=== PATIENT | female | born 1985 | race Hispanic/Latino ===

== ENCOUNTER 2017-07-10 15:51 | Outpatient (CLI) | payer OTHER ==
--- NOTE | 2017-07-10 18:48 | ULT ---
OB ULTRASOUND: 07/10/17 HISTORY: anatomy and size and dates. FINDINGS: There is a viable single intrauterine . Gestational age by ultrasound is 18 weeks, 3 days. Biometry measurements are consistent as noted below. BPD 18 week, 1 day HC 18 week, 2 day AC 19 week, 0 day FL 18 week, 6 day heart rate: 155 beats per minute. Placenta: Posterior. Presentation: Vertex. Amniotic fluid: Adequate and within normal range. anatomy visualized including intracranial contents, four chamber heart, stomach, kidneys, cord insertion, bladder, spine, facial features and three vessel. Cervical length: 4.0 cm. IMPRESSION: 18 week, 3 day gestation by ultrasound. POS: [facility]
== END 2017-07-10 15:52 | disposition home or self-care (01) ==
LOC: ULT 15:51
PROVIDERS: ATTEND Family Medicine
DX: Z33.1 Pregnant state, incidental (principal); Z3A.18 18 weeks gestation of pregnancy
CPT/HCPCS: 76805

== ENCOUNTER 2017-11-06 15:31 | Inpatient (IN) | payer OTHER ==
[2017-11-06 15:55] VITALS: BP 108/71; TEMP 98.5
[2017-11-06 15:58] VITALS: BMI 28.5
[2017-11-06] MEDS ORDERED: Ondansetron HCl/PF 4 MG/2 ML Vial IVP PRN (16:46)
[2017-11-06] MEDS ORDERED: Lidocaine 1% (PF) 30 ML VIAL SC PRN (16:48)
[2017-11-06] MEDS ORDERED: Ibuprofen 800 MG TAB PO PRN (16:48)
[2017-11-06] MEDS ORDERED: HYDROcodone/Acetaminophen 5/325 mg Tablet PO PRN ×2 (16:48)
[2017-11-06] MEDS ORDERED: LR / Pitocin 40 units/1000 ml 1,000 ML IV PRN (16:48)
--- NOTE | 2017-11-06 16:51 | PDOC.LDHP ---
Labor and Delivery H&P Chief complaint: other (Vaginal blood clot x 1) HPI: THIS PATIENT HAS A FULL HANDWRITTEN H&P IN THE PHYSICAL CHART>>>PLEASE REFER TO THAT H&P. 32 yo H [id number] at 35 weeks 2 days here for vaginal clot. No contractions, no LOF, no trauma, no recent sex. Good FM reported, no fevers. Was checked by Zo Hurley yesterday and was closed. Review of Systems: complete ROS performed and negative as per HPI Current gestational age (weeks): 35 (2 days) Due date: 12/09/17 Dating criteria: last menstrual period Grav: 5 Para: 3 (Ab1) Current complications: other (HX progesterone use this for last delivery born at 35 weeks in 2017.) Abnormal US findings: No Current medications: pre-noemí vitamins Previous surgical history: other (Breast surgery for gramulomatosis mastitis breast) Allergies/Adverse Reactions: Allergies Allergy/AdvReac Type Severity Reaction Status Date / Time clindamycin Allergy facial Verified 11/06/17 15:56 flushing and swelling Social history: none - Physical Exam Vital signs reviewed and normal: yes General: NAD Heart: RRR Lungs: CTAB Abdomen: gravid Extremeties: no edema FHT: category 1 Nitta Yuma contractions every: Every 6-10 minutes - Vaginal Exam cm dilated: 3 (by my exam) Effacement: 50% Station: -1 - Assessment L&D Assessment: labor (CX 3cm from closed yesterdat (per her report).) - Plan Plan: admit to L&D, GBS antibiotic prophylaxis (Due to EGA under 37 weeks), informed consent obtained, anesthesia consult for pain management, other (We will give celestone for FLM as EGA under 36 weeks [address] Michelle Hurley. IVF hydrate. If no further cervical change in 24 hours, may consider outpatient follow up after celestone.)
[2017-11-06] MEDS ORDERED: Penicillin G Potassium 5 MILL.UNITS in Sodium Chloride 0.9% 100 ML IVPB SCH (17:00)
[2017-11-06] MEDS: Betamet Acet/Betamet Na Ph 30 MG/5 ML VIAL IM SCH (17:13)
[2017-11-06] MEDS: Lactated Ringer's 1,000 ML IV SCH ×2 (17:30→21:21)
[2017-11-06 18:03] LABS: Hemoglobin 12.5 g/dL (12.0-16.0); Mean Corpuscular Hemoglobin 29.6 pg (27.0-31.0); Mean Corpuscular Volume 84.8 fl (81.0-99.0); Mean Platelet Volume 7.7 fL (7.4-10.4); Platelet Count 214 thou/uL (130-400); RBC Distribution Width 12.6 % (11.5-14.5); Red Blood Cell (RBC) Count 4.23 mill/uL (4.20-5.40); White Blood Cell (WBC) Count 4.6 thou/uL (4.8-10.8)
[2017-11-06 18:47] LABS: Syphilis Antibody Nonreactive (Nonreactive); Syphilis Antibody Index 0.04 S/CO (<1.00 Non-Reactive)
[2017-11-06 18:52] LABS: HBSAg Index 0.24 S/CO (0-0.99); HIV (1/2) Antibody/Antigen Non-Reactive (NonReactive); HIV 1/2 INDEX 0.09 S/CO (<1.00); Hep B Surf Ag Non-Reactive S/CO (NonReactive)
[2017-11-06] MEDS: Penicillin G 2.5 MILL.units 2.5 MILL.UNITS in Premix Bag 1 BAG IVPB SCH (21:34)
[2017-11-07] MEDS: Penicillin G 2.5 MILL.units 2.5 MILL.UNITS in Premix Bag 1 BAG IVPB SCH ×2 (01:32→05:35)
[2017-11-07] MEDS: Lactated Ringer's 1,000 ML IV SCH (07:59)
[2017-11-07] MEDS: Betamet Acet/Betamet Na Ph 30 MG/5 ML VIAL IM SCH (11:51)
--- NOTE | 2017-11-08 02:51 | DIS ---
DATE OF ADMISSION: 11/06/2017 DATE OF DISCHARGE: 11/07/2017 PRIMARY RELAY MOTORMAN: Michelle Mae MD ADMITTING DIAGNOSES: contractions with threatened labor, history of delivery . DISCHARGE DIAGNOSES: contractions with threatened labor, history of delivery . PROCEDURE: Betamethasone administration. CONSULTATIONS: None. HOSPITAL COURSE: The patient is a 32-year-old, G5, P3 female with a history of a delivery at 35 weeks, who presented to Labor and Delivery with vaginal bleeding. Her evaluation revealed a dila velma cervix of 3 cm, which had been closed the day before at her primary OB visit. She was a dmitted to Labor and Delivery for steroid administration and observation. During the course of her s mitch, she has not made any more cervical change. When I came on to shift, the patient was comfortable , was having subjectively feeling very infrequent and mild contractions. The patient reports a jakob e to return home. PHYSICAL EXAMINATION: VITAL SIGNS: At time of evaluation today, blood pressure 97/61, heart rate of 97, respiratory rate 1 6, temperature 98.5. GENERAL: She appeared to be in no acute distress. She was alert, oriented, cooperative, and pleasan t to interact with. HEENT: Head was normocephalic, atraumatic. PELVIS: Cervical exam was unchanged from the previous afternoon at the time of admission. heart tracing revealed a fetus with category 1 tracing with baseline in the 140s, moderate long -term variability, positive accelerations, very rare mild decelerations. Tocometer did show contract ions about every 10 minutes, though not felt by the patient always. The patient was continued under continued observation until about lunch time, at which time, the patient continued to be without any signs or symptoms of impending labor. We offered to give her her betamethasone a few hours early and discharged her home, which she was quickly to accept. I reviewed this plan with her primary OB, Dr. Michelle Mae, who also is comfortable with offering an e zaira discharge. The patient was discharged to home. She has instructions to follow up with her prim jeanette OB in the next few days.
== END 2017-11-07 12:38 | disposition home health service (06) | DRG 778 ==
LOC: L&D/OP 15:31 → L&D 17:01
PROVIDERS: ADMIT Family Medicine; ATTEND Family Medicine
DX: O60.03 Preterm labor without delivery, third trimester (principal); O09.219 Supervision of pregnancy with history of pre-term labor, unspecified trimester; Z3A.35 35 weeks gestation of pregnancy
CPT/HCPCS: 36415; 85027; 86780; 87081; 87340; 87389; J0702; J2540; J7050

== ENCOUNTER 2017-11-09 08:45 | Inpatient (IN) | payer OTHER ==
[2017-11-09 09:24] VITALS: BMI 28.5
[2017-11-09] MEDS ORDERED: Misoprostol 200 MCG TAB PR PRN (10:32)
[2017-11-09] MEDS ORDERED: Acetaminophen/Codeine 30-300mg Tablet PO PRN (10:32)
[2017-11-09] MEDS ORDERED: HYDROcodone/Acetaminophen 5/325 mg Tablet PO PRN (10:32)
[2017-11-09] MEDS ORDERED: Lidocaine 1% (PF) 30 ML VIAL SC PRN (10:32)
[2017-11-09] MEDS ORDERED: LR / Pitocin 40 units/1000 ml 1,000 ML IV PRN (10:32)
[2017-11-09] MEDS ORDERED: Acetaminophen 500 MG TAB PO PRN (10:32)
[2017-11-09] MEDS ORDERED: Ondansetron HCl/PF 4 MG/2 ML Vial IVP PRN (10:32)
[2017-11-09] MEDS ORDERED: Ibuprofen 800 MG TAB PO PRN (10:32)
[2017-11-09] MEDS ORDERED: Zolpidem Tartrate 5 MG TAB PO PRN (10:32)
[2017-11-09] MEDS ORDERED: Promethazine HCl 25 MG/ML VIAL IM PRN (10:32)
[2017-11-09 11:30] LABS: Hemoglobin 12.8 g/dL (12.0-16.0); Mean Corpuscular HGB CONC 33.3 g/dL (32.0-36.0); Mean Corpuscular Hemoglobin 28.8 pg (27.0-31.0); Mean Corpuscular Volume 86.5 fl (81.0-99.0); Platelet Count 250 thou/uL (130-400); RBC Distribution Width 12.8 % (11.5-14.5); Red Blood Cell (RBC) Count 4.44 mill/uL (4.20-5.40); White Blood Cell (WBC) Count 8.5 thou/uL (4.8-10.8)
[2017-11-09 13:23] LABS: HBSAg Index 0.19 S/CO (0-0.99); Hep B Surf Ag Non-Reactive S/CO (NonReactive)
[2017-11-09] MEDS ORDERED: Lactated Ringer's 1,000 ML IV SCH (20:00)
[2017-11-09] MEDS ORDERED: LR 500 ML/Oxytocin 10 units 500 ML IVPB SCH (20:00)
[2017-11-09] MEDS ORDERED: Bupivacaine 0.5% 20 ML, fentaNYL Citrate/PF 400 MCG in Sodium Chloride 0.9% 72 ML EPIDURAL SCH (21:30)
[2017-11-09] MEDS ORDERED: LR / Pitocin 40 units/1000 ml 1,000 ML ONE (22:51)
[2017-11-09] MEDS ORDERED: Lidocaine 1% (PF) 30 ML VIAL ONE (22:51)
[2017-11-10 00:51] LABS: Syphilis Antibody Nonreactive (Nonreactive); Syphilis Antibody Index 0.04 S/CO (<1.00 Non-Reactive)
[2017-11-10] MEDS ORDERED: Milk Of Magnesia 30 ML UDCUP PO PRN (03:41)
[2017-11-10] MEDS ORDERED: Benzocaine/Menthol 20-0.5% 60 ML CAN TOP PRN (03:41)
[2017-11-10] MEDS ORDERED: LR / Pitocin 40 units/1000 ml 1,000 ML IV SCH (03:41)
[2017-11-10] MEDS ORDERED: Bisacodyl 10 MG SUPP PR PRN (03:41)
[2017-11-10] MEDS ORDERED: Ondansetron HCl/PF 4 MG/2 ML Vial IVP PRN (03:41)
[2017-11-10] MEDS ORDERED: Lanolin Ointment 7 GM TUBE TOP PRN (03:41)
[2017-11-10] MEDS ORDERED: Acetaminophen/Codeine 30-300mg Tablet PO PRN (03:41)
[2017-11-10] MEDS ORDERED: HYDROcodone/Acetaminophen 5/325 mg Tablet PO PRN (03:41)
[2017-11-10] MEDS ORDERED: diphenhydrAMINE 25 MG CAP PO PRN (03:41)
[2017-11-10] MEDS ORDERED: Preparation H Ointment 28 GM TUBE PR PRN (03:41)
[2017-11-10] MEDS: Ibuprofen 800 MG TAB PO SCH ×3 (06:52→21:53)
[2017-11-10] MEDS: Docusate Calcium (SURFAK) 240 MG CAP PO SCH ×2 (08:37→21:53)
[2017-11-10] MEDS: Prenatal Vitamin 1 TAB PO SCH (08:37)
[2017-11-10] MEDS: Ferrous Sulfate 325 MG TAB PO SCH ×2 (09:32→15:17)
[2017-11-11] MEDS ORDERED: Hydrocortisone/Pramoxine (Proctofoam HC) 10 GM BOX PR PRN (00:22)
[2017-11-11 05:27] LABS: Mean Corpuscular HGB CONC 33.8 g/dL (32.0-36.0); Mean Corpuscular Hemoglobin 29.2 pg (27.0-31.0); Mean Corpuscular Volume 86.4 fl (81.0-99.0); Mean Platelet Volume 7.9 fL (7.4-10.4); Platelet Count 205 thou/uL (130-400); RBC Distribution Width 12.8 % (11.5-14.5); Red Blood Cell (RBC) Count 4.11 mill/uL (4.20-5.40); White Blood Cell (WBC) Count 9.8 thou/uL (4.8-10.8)
[2017-11-11] MEDS: Ibuprofen 800 MG TAB PO SCH (05:37)
--- NOTE | 2017-11-11 06:38 | PDOC.PP ---
Post Progress Note Post Day #: PPD#2 PO intake tolerated: yes Ambulation: yes Vital Signs (12 hours) Temp Pulse Resp BP 11/10/17 20:00 98.6 F 81 18 113/73 Weight Weight 73.028 kg - Physical Examination General: NAD Respiratory: non-labored breathing Abdominal: no distention Extremities: negative homans (B) Psychiatric: A&Ox3, normal affect Result Diagrams: 11/11/17 04:35 Additional Labs: Post Labs Hep Bs Antigen Non-Reactive S/CO (NonReactive) 11/09/17 11:01 - Assessment/Plan Rounding per Dr. Mae's request. DC home. Precautions. RTC w/ Dr. Mae as instructed.
[2017-11-11] MEDS: Ferrous Sulfate 325 MG TAB PO SCH (07:08)
[2017-11-11 07:37] VITALS: BP 110/75; TEMP 98
[2017-11-11] MEDS: Prenatal Vitamin 1 TAB PO SCH (09:50)
[2017-11-11] MEDS: Docusate Calcium (SURFAK) 240 MG CAP PO SCH (09:50)
== END 2017-11-11 13:53 | disposition home or self-care (01) | DRG 775 ==
LOC: L&D/OP 08:45 → OBSVTOIN 10:29 → L&D 10:29 → 3SW 11-10 03:00
PROVIDERS: ADMIT Family Medicine; ATTEND Family Medicine
PROC: 10E0XZZ Delivery of Products of Conception, External Approach (ICD-10-PCS; principal; 2017-11-09)
DX: O76 Abnormality in fetal heart rate and rhythm complicating labor and delivery (principal); Z37.0 Single live birth; Z3A.37 37 weeks gestation of pregnancy
CPT/HCPCS: 36415; 51702; 59025; 85027; 86780; 87081; 87340; 87389; 88307; 99285; J0702; J2001; J2540; J3010; J3490; J7050; J7120